=== PATIENT | female | born 1975 | race Two or more races ===

== ENCOUNTER 2020-01-08 17:22 | Emergency (ER) | payer OTHER ==
[~2020-01-08] VITALS: Ht 162.6 cm; Wt 60.9 kg
[2020-01-08 17:50] VITALS: BP 123/45
--- NOTE | 2020-01-08 17:53 | EKG ---
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
[2020-01-08] MEDS ORDERED: ASPIRIN 325 MG TABLET PO ONE (18:00)
[2020-01-08] MEDS ORDERED: IV NORMAL SALINE 1,000ML 1,000 ML IV ONE (18:00)
[2020-01-08] MEDS ORDERED: KETOROLAC 15 MG/ML VIAL. IVP ONE (18:00)
[2020-01-08 18:01] LABS: BASO # 0.1 x10^3/uL (0.0-0.2); BASO % 1 % (0-3); EOS # 0.1 x10^3/uL (0.0-0.7); EOS % 1 % (0-3); HEMATOCRIT 45.5 % (36.0-47.0); HEMOGLOBIN 15.1 g/dL (12.0-15.5); LYMPH # 3.5 x10^3/uL (1.0-4.8); LYMPH % 40 % (24-48); MEAN CORPUSCULAR HEMOGLOBIN 29 pg (25-35); MEAN CORPUSCULAR HGB CONC 33 g/dL (31-37); MEAN CORPUSCULAR VOLUME 86 fL (79-100); MONO # 0.5 x10^3/uL (0.0-1.1); MONO % 6 % (0-9); NEUT # 4.5 x10^3uL (1.8-7.7); NEUT % 52 % (31-73); PLATELET COUNT 245 x10^3/uL (140-400); RED BLOOD COUNT 5.27 x10^6/uL (3.50-5.40); RED CELL DISTRIBUTION WIDTH 13.2 % (11.5-14.5); WHITE BLOOD COUNT 8.8 x10^3/uL (4.0-11.0)
[2020-01-08 18:06] LABS: ANION GAP 7 (6-14); BLOOD UREA NITROGEN 8 mg/dL (7-20); BUN/CREATININE RATIO 11 (6-20); CALCIUM 9.2 mg/dL (8.5-10.1); CARBON DIOXIDE 30 mmol/L (21-32); CHLORIDE 103 mmol/L (98-107); CREATININE 0.7 mg/dL (0.6-1.0); GFR 91.8; GLUCOSE 110 mg/dL (70-99); POTASSIUM 3.4 mmol/L (3.5-5.1); SODIUM 140 mmol/L (136-145)
--- NOTE | 2020-01-08 18:10 | RAD ---
CHEST PA LATERAL History: Chest pain Comparison: None. Findings: Frontal and lateral views of the chest were obtained. The cardiomediastinal silhouette is normal. Pulmonary vasculature is normal. The lungs are clear. No pleural effusion or pneumothorax is seen. There is no acute bone abnormality. IMPRESSION: No acute cardiopulmonary process. Electronically signed by: Yousuf Campos MD (01/08/2020 6:07 PM) [id number]
[2020-01-08 18:17] LABS: PREG TEST PT QUAL NEGATIVE (NEG)
[2020-01-08 18:23] LABS: ALBUMIN 4.1 g/dL (3.4-5.0); ALBUMIN/GLOBULIN RATIO 1.1 (1.0-1.7); ALK PHOS 79 U/L (46-116); ALT (SGPT) 34 U/L (14-59); AST (SGOT) 25 U/L (15-37); LIPASE 238 U/L (73-393); MAGNESIUM 1.8 mg/dL (1.8-2.4); TOTAL BILIRUBIN 0.5 mg/dL (0.2-1.0); TOTAL PROTEIN 7.8 g/dL (6.4-8.2)
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
[2020-01-08] MEDS ORDERED: FAMO-63 PO (18:46)
[2020-01-08] MEDS ORDERED: LIDO:MAALOX 1:1 20 ML SINGLE DOSE. PO ONE (19:00)
== END 2020-01-08 18:52 | disposition home or self-care (01) ==
LOC: ER 17:22
DX: R07.89 Other chest pain (principal)
CPT/HCPCS: 36415; 71046; 80053; 82553; 83690; 83735; 83880; 84484; 84703; 85025; 85610; 85730; 93005; 96374; 99285; J1885; J7030

== ENCOUNTER → 2020-11-24 | Outpatient (CLI) | payer OTHER ==
[~2020-11-24] MED LIST: FAMO-63 PO
--- NOTE | 2020-11-24 09:46 | RAD ---
Transabdominal and endovaginal pelvic ultrasound without comparison for abnormal uterine bleeding, dy smenorrhea, dyspareunia. TECHNIQUE AND FINDINGS: Real-time grayscale and color Doppler evaluation of the pelvic organs is perf ormed from both transabdominal and endovaginal pelvic approach. Transabdominally, the urinary bladder is empty and provides a poor acoustic window, limiting evaluation. Endovaginally, the uterus measure s 8.7 x 6.9 x 4.7 cm and is retroverted. No uterine masses are identified. The endometrium is 1 mm in thickness. There is poor depiction of the endometrial and myometrial junction, which may be due to t echnical parameters, or could signify adenomyosis. This could be better evaluated with MRI. Both ovar ies are not identified. There are a few nabothian cysts in the cervix. No free fluid is identified. N o adnexal masses are seen. There are several serpiginous anechoic elements throughout the adnexa bila terally, which were not interrogated with color spectral Doppler but likely represent dilated pelvic veins. This may relate to pelvic congestion syndrome. Once again this could be better evaluated with MRI. IMPRESSION: 1. Indistinctness of the endometrial myometrial junction which could relate to adenomyomatosis. This could be clarified with MRI. 2. Dilated adnexal veins bilaterally likely indicative of pelvic congestion syndrome. MRI could furth er clarify this finding as well. Electronically signed by: Felix Chavez MD (11/24/2020 9:44 AM) [id number]
== END ==
LOC: US 08:57
PROVIDERS: ATTEND Obstetrics & Gynecology
DX: N93.9 Abnormal uterine and vaginal bleeding, unspecified (principal)
CPT/HCPCS: 76830; 76856